=== PATIENT | female | born 1985 | race African-American/Black ===

== ENCOUNTER 2018-06-13 21:52 | Emergency (ER) | payer MEDICAID, OTHER ==
[~2018-06-13] VITALS: Ht 170.2 cm; Wt 128.0 kg
[2018-06-14] MEDS ORDERED: ONDANSETRON HCL 4MG/2ML INJ IV ONE (01:15)
[2018-06-14] MEDS ORDERED: METOCLOPRAMIDE HCL 10MG/2ML VIAL IV ONE (01:15)
[2018-06-14] MEDS ORDERED: ACETAMINOPHEN 500MG TABLET PO ONE (01:30)
[2018-06-14 01:32] LABS: HEMATOCRIT 37.8 % (36.0-48.0); HEMOGLOBIN 12.5 g/dL (12.0-16.0); MEAN CORPUSCULAR HEMOGLOBIN 26.4 pg (28.0-32.0); MEAN CORPUSCULAR VOLUME 79.4 fL (81.0-99.0); PLATELET 231 x1000/uL (130-400); RED BLOOD CELL COUNT 4.76 mill/uL (4.2-5.4); RED CELL DISTRIBUTION WIDTH 13.6 % (11.6-14.6)
[2018-06-14 01:34] LABS: CHLORIDE 106 mEq/L (98-107)
[2018-06-14 05:59] VITALS: BP 118/60
[2018-06-14] MEDS ORDERED: ONDANSETRON 4MG ODT PO ONE (06:00)
== END 2018-06-14 11:26 | disposition home or self-care (01) ==
LOC: ER 22:15
DX: R11.2 Nausea with vomiting, unspecified (principal); R19.7 Diarrhea, unspecified; E11.9 Type 2 diabetes mellitus without complications; I10 Essential (primary) hypertension; Z87.440 Personal history of urinary (tract) infections; Z90.49 Acquired absence of other specified parts of digestive tract
CPT/HCPCS: 36415; 80053; 81025; 82962; 85027; 96374; 96375; 99283; J2405; J2765